=== PATIENT | female | born 1990 | race Caucasian/White ===

== ENCOUNTER → 2017-05-14 | Outpatient (CLI) | payer OTHER ==
--- NOTE | 2017-05-14 12:23 | KCIC ---
CT MAXILLOFACIAL WO CONTRAST Indication: Acute recurrent sinusitis, congestion and drainage, headache Technique: NoncontrastCT imaging was performed of the maxillofacial region, multiplanar reconstruction images submitted. One or more of the following individualized dose reduction techniques were utilized for this examination: 1. Automated exposure control 2. Adjustment of the mA and/or kV according to patient size 3. Use of iterative reconstruction technique. Contrast: None Comparison: None Findings: Mastoid air cells are aerated. Paranasal sinuses are overall aerated without air-fluid levels. There is minimal very minimal more focal mucosal thickening of the posterior sphenoid sinus up to 1 mm thickness. There is deviation of nasal septum to the right. Ostiomeatal units are patent bilaterally. IMPRESSION: 1. Paranasal sinuses are overall aerated other than very minimal more focal mucosal thickening of the posterior sphenoid sinus. There are no air-fluid levels in the paranasal sinuses. There is deviation of the nasal septum to the right. Electronically signed by: Mark Guthrie MD (05/14/2017 12:19 PM) [id number]
== END | disposition home or self-care (01) ==
LOC: KCIC CT 11:05
PROVIDERS: ATTEND Otolaryngology
DX: J01.91 Acute recurrent sinusitis, unspecified (principal); J34.2 Deviated nasal septum; R51 Headache
CPT/HCPCS: 70486